=== PATIENT | male | born 1995 | race Two or more races ===

== ENCOUNTER 2018-03-06 21:21 | Emergency (ER) | payer SELFPAY ==
[~2018-03-06] VITALS: Ht 175.3 cm; Wt 64.4 kg
[2018-03-06 21:23] VITALS: BP 98/53
== END 2018-03-06 22:49 | disposition home or self-care (01) ==
LOC: ED 22:20
DX: S61.211A Laceration without foreign body of left index finger without damage to nail, initial encounter (principal); X58.XXXA Exposure to other specified factors, initial encounter; Y93.89 Activity, other specified; Y99.8 Other external cause status; Y92.89 Other specified places as the place of occurrence of the external cause
CPT/HCPCS: 12001; 99283